=== PATIENT | female | born 1960 | race Caucasian/White ===

== ENCOUNTER 2020-08-31 14:57 | Outpatient (CLI) | payer BC ==
[2020-08-31 15:57] LABS: CLARITY,URINE CLEAR (Clear); COLOR,URINE YELLOW (Yellow); GLUCOSE, URINE NEGATIVE (Neg); KETONES,URINE NEGATIVE (Neg); LEUKOCYTE ESTERASE ,URINE NEGATIVE (Neg); NITRITES, URINE NEGATIVE (Neg); OCCULT BLOOD,URINE TRACE-INTACT (Neg); PH,URINE 5.5 (4.8-8.0); PROTEIN,URINE NEGATIVE (Neg); UROBILINOGEN,URINE 0.2 E.U/dL (0.2-1.0)
[2020-08-31 16:02] LABS: BASOPHILS # (AUTO) 0.1 X10'3 (0-0.2); BASOPHILS % (AUTO) 0.7 % (0-1); EOSINOPHILS # (AUTO) 0.3 X10'3 (0-0.9); EOSINOPHILS % (AUTO) 3.1 % (0-6); HEMATOCRIT 40.1 % (35.0-45.0); HEMOGLOBIN 13.4 g/dl (12.0-16.0); LYMPHOCYTES # (AUTO) 2.5 X10'3 (1.1-4.8); LYMPHOCYTES % (AUTO) 29.1 % (21-51); MEAN CORPUSCULAR HEMOGLOBIN 31.6 PG (27.0-31.0); MEAN CORPUSCULAR HGB CONC 33.4 g/dL (33.0-36.5); MEAN CORPUSCULAR VOLUME 94.8 FL (78-98); MEAN PLATELET VOLUME 8.1 FL (7.4-10.4); MONOCYTES # (AUTO) 0.5 X10'3 (0-0.9); MONOCYTES % (AUTO) 6.3 % (2-12); NEUTROPHILS # (AUTO) 5.3 X10'3 (1.8-7.7); NEUTROPHILS % (AUTO) 60.8 % (42-75); PLATELET COUNT 303 X10'3 (140-440); RED BLOOD COUNT 4.23 X10'6 (4.20-5.60); RED CELL DISTRIBUTION WIDTH 13.9 % (11.5-14.5); WHITE BLOOD COUNT 8.7 X10'3 (4.5-11.0)
[2020-08-31 16:04] LABS: UA COLLECTION TYPE CLN CATCH MIDSTREAM
[2020-08-31 16:09] LABS: ALBUMIN 3.6 G/DL (3.4-5.0); ANION GAP 12 (8-16); BLOOD UREA NITROGEN 11 MG/DL (7-18); BUN/CREATININE RATIO 14.9 (6.6-38.0); CALCIUM 9.1 MG/DL (8.5-10.1); CHLORIDE 101 MMOL/L (99-107); CREATININE 0.74 MG/DL (0.40-0.90); GLUCOSE 113 MG/DL (70-104); SODIUM 138 MMOL/L (135-145); TOTAL CARBON DIOXIDE 25.5 MMOL/L (24-32); eGFR 81 ML/MIN
[2020-08-31 16:12] LABS: POTASSIUM 4.2 MMOL/L (3.5-5.1)
[2020-08-31 16:14] LABS: MUCUS STRANDS MODERATE /LPF (Neg); SQUAMOUS EPITHELIAL CELL,UR MANY /LPF (FEW)
[2020-08-31 16:17] LABS: RBC,URINE 0-2 /HPF (0-2); WBC,URINE 0-4 /HPF (0-4)
[2020-08-31 16:22] LABS: HYALINE CASTS 0-3 /LPF (NEGATIVE)
[2020-08-31 16:25] LABS: BACTERIA,URINE FEW /HPF (Neg)
[2020-09-01] MEDS ORDERED: OXYC1TAB17 PO (14:39)
[2020-09-01] MEDS ORDERED: DOCU-345 PO (14:39)
[2020-09-01] MEDS ORDERED: METF-900 PO (14:39)
[2020-09-01] MEDS ORDERED: ESCI-8 PO (14:39)
[2020-09-01] MEDS ORDERED: PROG200C11 PO (14:39)
[2020-09-01] MEDS ORDERED: [UNRECOGNIZED DRUG - REMARK] PO (15:07)
== END 2020-08-31 23:59 | disposition home or self-care (01) ==
LOC: LAB 14:57
PROVIDERS: ATTEND Surgery
DX: N39.0 Urinary tract infection, site not specified (principal); K57.90 Diverticulosis of intestine, part unspecified, without perforation or abscess without bleeding
CPT/HCPCS: 36415; 80048; 81001; 85025

== ENCOUNTER 2020-09-01 12:15 | Inpatient (IN) | payer BC ==
[~2020-09-01] VITALS: Ht 167.6 cm; Wt 99.5 kg
[2020-09-01] MEDS ORDERED: mag hydrox/Alum hydrox/simeth 30ml oral suspension PO PRN (12:35)
[2020-09-01] MEDS ORDERED: acetaminophen 325mg tablet PO PRN (12:35)
[2020-09-01] MEDS ORDERED: HYDROmorph./NS 0.2 mg/ml CADD 100 ML IV SCH ×2 (12:35→17:30)
[2020-09-01] MEDS ORDERED: CADD PCA waste documentation MC PRN (12:35)
[2020-09-01] MEDS ORDERED: naloxone 0.4 mg/ml inj IV PRN (12:35)
[2020-09-01] MEDS: normal saline 1000ml 1,000 ML IV SCH ×2 (12:35→22:35)
[2020-09-01] MEDS ORDERED: magnesium hydroxide 30ml (MOM) UD suspension PO PRN (12:35)
[2020-09-01 13:33] LABS: BASOPHILS # (AUTO) 0.1 X10'3 (0-0.2); BASOPHILS % (AUTO) 0.8 % (0-1); EOSINOPHILS # (AUTO) 0.3 X10'3 (0-0.9); EOSINOPHILS % (AUTO) 3.7 % (0-6); HEMATOCRIT 39.2 % (35.0-45.0); HEMOGLOBIN 13.2 g/dl (12.0-16.0); LYMPHOCYTES # (AUTO) 2.3 X10'3 (1.1-4.8); LYMPHOCYTES % (AUTO) 28.8 % (21-51); MEAN CORPUSCULAR HEMOGLOBIN 31.8 PG (27.0-31.0); MEAN CORPUSCULAR HGB CONC 33.6 g/dL (33.0-36.5); MEAN CORPUSCULAR VOLUME 94.7 FL (78-98); MEAN PLATELET VOLUME 7.6 FL (7.4-10.4); MONOCYTES # (AUTO) 0.6 X10'3 (0-0.9); MONOCYTES % (AUTO) 7.4 % (2-12); NEUTROPHILS # (AUTO) 4.8 X10'3 (1.8-7.7); NEUTROPHILS % (AUTO) 59.3 % (42-75); PLATELET COUNT 273 X10'3 (140-440); RED BLOOD COUNT 4.14 X10'6 (4.20-5.60); RED CELL DISTRIBUTION WIDTH 13.9 % (11.5-14.5); WHITE BLOOD COUNT 8.1 X10'3 (4.5-11.0)
--- NOTE | 2020-09-01 13:35 | NUR ---
Pt arrived via [facility] to rm 356[facility]. Male SO accompanied pt. skin care technician drawing ordered tests. Pt states she is takes Percocet at home, but needs a midline, per previous difficult IV starts during a hospitalization in July. BHUPENDRA Patiño notified.
[2020-09-01 13:46] LABS: ALANINE AMINOTRANSFERASE 91 U/L (12-78); ALBUMIN 3.5 G/DL (3.4-5.0); ALBUMIN/GLOBULIN RATIO 0.8 (1.1-1.5); ALKALINE PHOSPHATASE 204 IU/L (46-116); ANION GAP 8 (8-16); ASPARTATE AMINO TRANSFERASE 63 U/L (10-37); BILIRUBIN,TOTAL 0.3 MG/DL (0.1-1.0); BLOOD UREA NITROGEN 14 MG/DL (7-18); BUN/CREATININE RATIO 19.4 (6.6-38.0); CALCIUM 8.9 MG/DL (8.5-10.1); CHLORIDE 103 MMOL/L (99-107); CREATININE 0.72 MG/DL (0.40-0.90); GLUCOSE 117 MG/DL (70-104); POTASSIUM 4.3 MMOL/L (3.5-5.1); SODIUM 138 MMOL/L (135-145); TOTAL CARBON DIOXIDE 26.9 MMOL/L (24-32); TOTAL PROTEIN 7.7 G/DL (6.4-8.2); eGFR 83 ML/MIN
[2020-09-01 14:13] VITALS: BP 121/75
[2020-09-01] MEDS: oxyCODONE/APAP 10/325mg tablet PO PRN ×2 (14:19→21:54)
[2020-09-01] MEDS ORDERED: OXYC1TAB17 PO (14:39)
[2020-09-01] MEDS ORDERED: DOCU-345 PO (14:39)
[2020-09-01] MEDS ORDERED: ESCI-8 PO (14:39)
[2020-09-01] MEDS ORDERED: PROG200C11 PO (14:39)
[2020-09-01] MEDS ORDERED: METF-900 PO (14:39)
[2020-09-01] MEDS ORDERED: [UNRECOGNIZED DRUG - REMARK] PO (15:07)
[2020-09-01] MEDS: piperacillin/tazo 4.5gm/100ml 100 ML IV SCH (17:44)
--- NOTE | 2020-09-01 18:16 | NUR ---
Problems reprioritized. Patient report given, questions answered & plan of care reviewed with Charisse Mcqueen RN.
[2020-09-01] MEDS ORDERED: HYDROmorphone inj. 0.5 MG/0.5 ML DISP.SYRIN IV PRN (18:20)
--- NOTE | 2020-09-01 18:30 | NUR ---
Patient in room [facility]. I have received report from AMINA HUIZAR and had the opportunity to ask questions and assume patient care.
[2020-09-01] MEDS: HYDROmorphone 1 mg/ml syringe IV PRN (19:21)
[2020-09-01 20:00] VITALS: BP 98/53
[2020-09-01] MEDS: progesterone, micronized 100mg capsule PO SCH (21:24)
[2020-09-01] MEDS: ESCITALOPRAM OXALATE 5 MG TABLET PO SCH (21:24)
[2020-09-02] VITALS: BP 105/51
[2020-09-02] MEDS: piperacillin/tazo 4.5gm/100ml 100 ML IV SCH ×2 (00:36→07:12)
[2020-09-02] MEDS: HYDROmorphone 1 mg/ml syringe IV PRN ×6 (00:44→23:43)
[2020-09-02] MEDS: normal saline 1000ml 1,000 ML IV SCH ×2 (02:56→15:51)
--- NOTE | 2020-09-02 06:30 | NUR ---
Problems reprioritized. Patient report given, questions answered & plan of care reviewed with SOLO HUIZAR.
--- NOTE | 2020-09-02 06:32 | NUR ---
Patient in room [facility]. I have received report from BHUPENDRA Baker and had the opportunity to ask questions and assume patient care.
[2020-09-02 07:00] VITALS: BP 116/37
[2020-09-02] MEDS: oxyCODONE/APAP 10/325mg tablet PO PRN ×2 (07:12→15:51)
[2020-09-02] MEDS: ondansetron/PF 4mg/2ml inj IV PRN (07:12)
[2020-09-02] MEDS: ESCITALOPRAM OXALATE 5 MG TABLET PO SCH ×2 (07:13→20:33)
[2020-09-02] MEDS: enoxaparin 40mg/0.4ml syringe SUBCUT SCH (07:14)
[2020-09-02] MEDS ORDERED: cefepime 2g/NS 100ml ADVANTAGE 100 ML IV SCH (08:15)
[2020-09-02 08:23] LABS: EOSINOPHILS # (AUTO) 0.1 X10'3 (0-0.9); EOSINOPHILS % (AUTO) 2.8 % (0-6); HEMATOCRIT 37.3 % (35.0-45.0); HEMOGLOBIN 12.4 g/dl (12.0-16.0); LYMPHOCYTES # (AUTO) 1.2 X10'3 (1.1-4.8); LYMPHOCYTES % (AUTO) 23.3 % (21-51); MEAN CORPUSCULAR HEMOGLOBIN 31.7 PG (27.0-31.0); MEAN CORPUSCULAR HGB CONC 33.2 g/dL (33.0-36.5); MEAN CORPUSCULAR VOLUME 95.6 FL (78-98); MEAN PLATELET VOLUME 7.9 FL (7.4-10.4); MONOCYTES # (AUTO) 0.4 X10'3 (0-0.9); MONOCYTES % (AUTO) 7.9 % (2-12); NEUTROPHILS # (AUTO) 3.3 X10'3 (1.8-7.7); PLATELET COUNT 212 X10'3 (140-440); RED CELL DISTRIBUTION WIDTH 14.1 % (11.5-14.5)
[2020-09-02 08:45] LABS: ALBUMIN 2.8 G/DL (3.4-5.0); ANION GAP 9 (8-16); BLOOD UREA NITROGEN 13 MG/DL (7-18); BUN/CREATININE RATIO 18.6 (6.6-38.0); CALCIUM 8.5 MG/DL (8.5-10.1); CHLORIDE 104 MMOL/L (99-107); GLUCOSE 145 MG/DL (70-104); POTASSIUM 4.2 MMOL/L (3.5-5.1); SODIUM 142 MMOL/L (135-145); TOTAL CARBON DIOXIDE 28.8 MMOL/L (24-32); eGFR 86 ML/MIN
--- NOTE | 2020-09-02 09:05 | NUR ---
Pt started on new antibiotic d/t Zosyn allergy (increased Liver enzymes) now having hives with Cephapime. Medication stopped. Notified Dr Carrillo and asked for Benadryl. Will continue to monitor reaction. No current breathing issues.
--- NOTE | 2020-09-02 09:20 | NUR ---
Dr Nava at bedside to see pt with extensive conversation regarding plan of care. Pt verbalizing desire to have surgery to "get it over with. Md preferring to continue a medical approach to wait for more definitive findings. Pt reluctantly willing to go along with the plan.
[2020-09-02] MEDS: diphenhydrAMINE 50 mg/ml inj IV PRN (09:24)
[2020-09-02 11:00] VITALS: BP 120/48
[2020-09-02] MEDS ORDERED: vancomycin/NS 1 GM ADD-VANTAGE 250 ML IV SCH (11:00)
[2020-09-02] MEDS: vancomycin/NS 1 GM ADD-VANTAGE 250 ML IV SCH ×2 (11:18→19:04)
[2020-09-02 11:41] LABS: C-REACTIVE PROTEIN 0.87 MG/DL (0.0-0.5); PREALBUMIN 23.7 MG/DL (19-36)
--- NOTE | 2020-09-02 13:00 | NUR ---
medicated for pain 09/21.
[2020-09-02] MEDS: aztreonam inj. 1,000 MG in normal saline 100ml IV soln 100 ML IV SCH ×2 (13:39→23:39)
[2020-09-02] MEDS: metroNIDAZOLE-Flagyl 500mg/NS 100 ML IV SCH (15:52)
[2020-09-02] MEDS: metoclopramide 5 mg/ml inj IV PRN (18:57)
[2020-09-02 19:46] VITALS: BP 112/70
[2020-09-02] MEDS: progesterone, micronized 100mg capsule PO SCH (20:33)
[2020-09-03 00:18] VITALS: BP 107/52
--- NOTE | 2020-09-03 00:27 | NUR ---
Problems reprioritized. Patient report given, questions answered & plan of care reviewed with BHUPENDRA Soto.
[2020-09-03] MEDS: oxyCODONE/APAP 10/325mg tablet PO PRN ×3 (01:28→15:40)
[2020-09-03] MEDS: metroNIDAZOLE-Flagyl 500mg/NS 100 ML IV SCH ×4 (01:29→23:45)
[2020-09-03] MEDS: vancomycin/NS 1 GM ADD-VANTAGE 250 ML IV SCH ×2 (03:00→12:20)
[2020-09-03] MEDS: HYDROmorphone 1 mg/ml syringe IV PRN ×5 (03:51→22:14)
--- NOTE | 2020-09-03 06:24 | NUR ---
Patient in room [facility]. I have received report from alexis HUIZAR and had the opportunity to ask questions and assume patient care.
[2020-09-03 06:27] LABS: BASOPHILS % (AUTO) 0.9 % (0-1); EOSINOPHILS # (AUTO) 0.3 X10'3 (0-0.9); EOSINOPHILS % (AUTO) 5.7 % (0-6); HEMATOCRIT 35.4 % (35.0-45.0); HEMOGLOBIN 11.8 g/dl (12.0-16.0); LYMPHOCYTES # (AUTO) 1.4 X10'3 (1.1-4.8); LYMPHOCYTES % (AUTO) 27.3 % (21-51); MEAN CORPUSCULAR HGB CONC 33.4 g/dL (33.0-36.5); MEAN CORPUSCULAR VOLUME 95.9 FL (78-98); MEAN PLATELET VOLUME 7.9 FL (7.4-10.4); MONOCYTES # (AUTO) 0.4 X10'3 (0-0.9); MONOCYTES % (AUTO) 7.9 % (2-12); NEUTROPHILS % (AUTO) 58.2 % (42-75); PLATELET COUNT 213 X10'3 (140-440); RED BLOOD COUNT 3.69 X10'6 (4.20-5.60); RED CELL DISTRIBUTION WIDTH 14.1 % (11.5-14.5); WHITE BLOOD COUNT 5.2 X10'3 (4.5-11.0)
[2020-09-03 06:33] LABS: ALBUMIN 2.8 G/DL (3.4-5.0); ANION GAP 6 (8-16); BLOOD UREA NITROGEN 6 MG/DL (7-18); BUN/CREATININE RATIO 8.2 (6.6-38.0); CALCIUM 8.4 MG/DL (8.5-10.1); CHLORIDE 106 MMOL/L (99-107); CREATININE 0.73 MG/DL (0.40-0.90); GLUCOSE 107 MG/DL (70-104); POTASSIUM 3.9 MMOL/L (3.5-5.1); SODIUM 141 MMOL/L (135-145); TOTAL CARBON DIOXIDE 29.1 MMOL/L (24-32); eGFR 82 ML/MIN
[2020-09-03 07:00] VITALS: BP 127/56
[2020-09-03] MEDS: aztreonam inj. 1,000 MG in normal saline 100ml IV soln 100 ML IV SCH ×2 (07:28→15:39)
[2020-09-03] MEDS: ESCITALOPRAM OXALATE 5 MG TABLET PO SCH ×2 (07:29→19:32)
[2020-09-03] MEDS: enoxaparin 40mg/0.4ml syringe SUBCUT SCH (07:30)
[2020-09-03] MEDS: normal saline 1000ml 1,000 ML IV SCH ×3 (07:36→23:43)
[2020-09-03] MEDS: ondansetron/PF 4mg/2ml inj IV PRN (07:38)
[2020-09-03] MEDS ORDERED: VANCOMYCIN LEVEL IV ONE (10:30)
[2020-09-03 11:00] VITALS: BP 107/65
--- NOTE | 2020-09-03 14:37 | NUR ---
patient requiring pain relief q2hrs. Seen by Dr barone and DR Carrillo. patient commenced on clear liquid diet to go slow on this. present. will continue to monitor.Ambulated in Hallway, passing gas.
[2020-09-03] MEDS ORDERED: LIDOcaine 2% 10ml TOPICAL JELLY (Urojet) TP ONE (16:10)
[2020-09-03 18:00] VITALS: BP 127/62
--- NOTE | 2020-09-03 18:27 | NUR ---
Patient in room [facility]. I have received report from BHUPENDRA Chicas and had the opportunity to ask questions and assume patient care.
--- NOTE | 2020-09-03 18:31 | NUR ---
Problems reprioritized. Patient report given, questions answered & plan of care reviewed with Yusuf HUIZAR.
[2020-09-03] MEDS: VANCOmycin 1250MG/NS 250ml Bag 250 ML IV SCH (19:20)
[2020-09-03] MEDS: lactobacillus rhamnosus 10,000 MMU CELLS/CAPSULE PO SCH (19:32)
[2020-09-03] MEDS: progesterone, micronized 100mg capsule PO SCH (21:12)
[2020-09-04 00:08] VITALS: BP 125/60
[2020-09-04] MEDS: oxyCODONE/APAP 10/325mg tablet PO PRN ×3 (00:30→18:54)
[2020-09-04] MEDS: aztreonam inj. 1,000 MG in normal saline 100ml IV soln 100 ML IV SCH ×3 (00:31→17:45)
[2020-09-04] MEDS: HYDROmorphone 1 mg/ml syringe IV PRN ×4 (03:16→21:16)
[2020-09-04] MEDS: VANCOmycin 1250MG/NS 250ml Bag 250 ML IV SCH ×3 (03:19→18:56)
--- NOTE | 2020-09-04 06:26 | NUR ---
Problems reprioritized. Patient report given, questions answered & plan of care reviewed with BHUPENDRA Marion.
--- NOTE | 2020-09-04 06:35 | NUR ---
Patient in room [facility]. I have received report from Yusuf HUIZAR and had the opportunity to ask questions and assume patient care.
[2020-09-04 07:02] LABS: BASOPHILS % (AUTO) 0.8 % (0-1); EOSINOPHILS # (AUTO) 0.3 X10'3 (0-0.9); EOSINOPHILS % (AUTO) 5.3 % (0-6); HEMATOCRIT 34.6 % (35.0-45.0); HEMOGLOBIN 11.9 g/dl (12.0-16.0); LYMPHOCYTES # (AUTO) 1.5 X10'3 (1.1-4.8); LYMPHOCYTES % (AUTO) 32.4 % (21-51); MEAN CORPUSCULAR HEMOGLOBIN 32.3 PG (27.0-31.0); MEAN CORPUSCULAR HGB CONC 34.3 g/dL (33.0-36.5); MEAN CORPUSCULAR VOLUME 94.1 FL (78-98); MEAN PLATELET VOLUME 7.5 FL (7.4-10.4); MONOCYTES # (AUTO) 0.4 X10'3 (0-0.9); MONOCYTES % (AUTO) 7.8 % (2-12); NEUTROPHILS # (AUTO) 2.6 X10'3 (1.8-7.7); NEUTROPHILS % (AUTO) 53.7 % (42-75); PLATELET COUNT 204 X10'3 (140-440); RED BLOOD COUNT 3.68 X10'6 (4.20-5.60); RED CELL DISTRIBUTION WIDTH 13.9 % (11.5-14.5); WHITE BLOOD COUNT 4.8 X10'3 (4.5-11.0)
[2020-09-04 07:13] VITALS: BP 120/62
[2020-09-04 07:17] LABS: ALBUMIN 2.8 G/DL (3.4-5.0); ANION GAP 9 (8-16); BLOOD UREA NITROGEN 4 MG/DL (7-18); BUN/CREATININE RATIO 6.2 (6.6-38.0); CALCIUM 8.3 MG/DL (8.5-10.1); CHLORIDE 105 MMOL/L (99-107); CREATININE 0.65 MG/DL (0.40-0.90); GLUCOSE 119 MG/DL (70-104); POTASSIUM 3.7 MMOL/L (3.5-5.1); SODIUM 140 MMOL/L (135-145); TOTAL CARBON DIOXIDE 26.1 MMOL/L (24-32); eGFR > 90 ML/MIN
[2020-09-04] MEDS: lactobacillus rhamnosus 10,000 MMU CELLS/CAPSULE PO SCH ×2 (07:51→20:27)
[2020-09-04] MEDS: ESCITALOPRAM OXALATE 5 MG TABLET PO SCH ×2 (07:52→20:27)
[2020-09-04] MEDS: enoxaparin 40mg/0.4ml syringe SUBCUT SCH (07:56)
[2020-09-04] MEDS: ondansetron/PF 4mg/2ml inj IV PRN (08:00)
[2020-09-04] MEDS: metroNIDAZOLE-Flagyl 500mg/NS 100 ML IV SCH ×2 (09:33→15:55)
[2020-09-04] MEDS: normal saline 1000ml 1,000 ML IV SCH ×2 (10:35→15:55)
[2020-09-04 11:00] VITALS: BP 125/59
[2020-09-04] MEDS: metoclopramide 5 mg/ml inj IV PRN (11:41)
[2020-09-04 12:46] LABS: ALANINE AMINOTRANSFERASE 332 U/L (12-78); ALBUMIN/GLOBULIN RATIO 0.8 (1.1-1.5); ALKALINE PHOSPHATASE 340 IU/L (46-116); ASPARTATE AMINO TRANSFERASE 144 U/L (10-37); BILIRUBIN,DIRECT 0.3 MG/DL (0-0.3); BILIRUBIN,TOTAL 0.7 MG/DL (0.1-1.0); TOTAL PROTEIN 6.4 G/DL (6.4-8.2)
--- NOTE | 2020-09-04 18:17 | NUR ---
Problems reprioritized. Patient report given, questions answered & plan of care reviewed with Prudence RN.
[2020-09-04 18:30] VITALS: BP 128/53
[2020-09-04] MEDS ORDERED: VANCOMYCIN LEVEL IV ONE (18:30)
--- NOTE | 2020-09-04 18:33 | NUR ---
Patient in room [facility]. I have received report from MIHAELA HUIZAR and had the opportunity to ask questions and assume patient care.
[2020-09-04] MEDS: docusate sod 100mg capsule PO SCH (20:27)
[2020-09-04] MEDS: progesterone, micronized 100mg capsule PO SCH (20:28)
[2020-09-04] MEDS: polyethylene glycol 3350 17gm powd pack PO SCH (21:00)
[2020-09-05] MEDS: metroNIDAZOLE-Flagyl 500mg/NS 100 ML IV SCH ×3 (00:13→17:08)
[2020-09-05] MEDS: aztreonam inj. 1,000 MG in normal saline 100ml IV soln 100 ML IV SCH ×3 (00:17→18:41)
[2020-09-05 00:27] VITALS: BP 124/61
[2020-09-05] MEDS: oxyCODONE/APAP 10/325mg tablet PO PRN ×3 (00:55→18:41)
[2020-09-05] MEDS: VANCOmycin 1250MG/NS 250ml Bag 250 ML IV SCH ×3 (03:15→19:53)
[2020-09-05] MEDS: HYDROmorphone 1 mg/ml syringe IV PRN ×4 (03:21→21:09)
--- NOTE | 2020-09-05 06:14 | NUR ---
Problems reprioritized. Patient report given, questions answered & plan of care reviewed with FLETCHER HUIZAR.
[2020-09-05] MEDS: normal saline 1000ml 1,000 ML IV SCH ×2 (06:35→16:35)
--- NOTE | 2020-09-05 06:45 | NUR ---
Patient in room [facility]. I have received report from BHUEPNDRA WEBSTER and had the opportunity to ask questions and assume patient care.
[2020-09-05 06:53] LABS: BASOPHILS % (AUTO) 0.8 % (0-1); EOSINOPHILS # (AUTO) 0.3 X10'3 (0-0.9); EOSINOPHILS % (AUTO) 5.1 % (0-6); HEMATOCRIT 34.4 % (35.0-45.0); HEMOGLOBIN 11.5 g/dl (12.0-16.0); LYMPHOCYTES # (AUTO) 1.8 X10'3 (1.1-4.8); MEAN CORPUSCULAR HEMOGLOBIN 31.9 PG (27.0-31.0); MEAN CORPUSCULAR HGB CONC 33.4 g/dL (33.0-36.5); MEAN CORPUSCULAR VOLUME 95.6 FL (78-98); MONOCYTES # (AUTO) 0.4 X10'3 (0-0.9); NEUTROPHILS % (AUTO) 54.1 % (42-75); PLATELET COUNT 227 X10'3 (140-440); RED CELL DISTRIBUTION WIDTH 13.9 % (11.5-14.5); WHITE BLOOD COUNT 5.6 X10'3 (4.5-11.0)
[2020-09-05 07:00] VITALS: BP 132/68
[2020-09-05 07:01] LABS: ALANINE AMINOTRANSFERASE 233 U/L (12-78); ALBUMIN 2.6 G/DL (3.4-5.0); ALBUMIN/GLOBULIN RATIO 0.7 (1.1-1.5); ALKALINE PHOSPHATASE 320 IU/L (46-116); ANION GAP 7 (8-16); ASPARTATE AMINO TRANSFERASE 73 U/L (10-37); BILIRUBIN,TOTAL 0.5 MG/DL (0.1-1.0); BLOOD UREA NITROGEN 4 MG/DL (7-18); BUN/CREATININE RATIO 6.9 (6.6-38.0); CHLORIDE 107 MMOL/L (99-107); CREATININE 0.58 MG/DL (0.40-0.90); GLUCOSE 108 MG/DL (70-104); POTASSIUM 3.8 MMOL/L (3.5-5.1); SODIUM 141 MMOL/L (135-145); TOTAL CARBON DIOXIDE 26.9 MMOL/L (24-32); TOTAL PROTEIN 6.1 G/DL (6.4-8.2); eGFR > 90 ML/MIN
[2020-09-05] MEDS: lactobacillus rhamnosus 10,000 MMU CELLS/CAPSULE PO SCH ×2 (09:10→19:54)
[2020-09-05] MEDS: ESCITALOPRAM OXALATE 5 MG TABLET PO SCH ×2 (09:10→19:53)
[2020-09-05] MEDS: docusate sod 100mg capsule PO SCH ×2 (09:11→19:54)
[2020-09-05] MEDS: enoxaparin 40mg/0.4ml syringe SUBCUT SCH (09:12)
[2020-09-05] MEDS ORDERED: magnesium hydroxide 30ml (MOM) UD suspension PO PRN (10:50)
[2020-09-05 11:00] VITALS: BP 125/68
[2020-09-05 18:00] VITALS: BP 132/65
--- NOTE | 2020-09-05 18:45 | NUR ---
Problems reprioritized. Patient report given, questions answered & plan of care reviewed with BHUPENDRA PATE.
[2020-09-05] MEDS: ondansetron/PF 4mg/2ml inj IV PRN (18:47)
[2020-09-05] MEDS: polyethylene glycol 3350 17gm powd pack PO SCH (20:59)
[2020-09-05] MEDS: progesterone, micronized 100mg capsule PO SCH (21:09)
[2020-09-05] MEDS: metoclopramide 5 mg/ml inj IV PRN (21:40)
[2020-09-06] VITALS: BP 113/48
[2020-09-06] MEDS: oxyCODONE/APAP 10/325mg tablet PO PRN ×4 (00:42→21:35)
[2020-09-06] MEDS: metroNIDAZOLE-Flagyl 500mg/NS 100 ML IV SCH ×4 (00:43→23:16)
[2020-09-06] MEDS: aztreonam inj. 1,000 MG in normal saline 100ml IV soln 100 ML IV SCH ×4 (00:43→23:16)
[2020-09-06] MEDS: normal saline 1000ml 1,000 ML IV SCH ×3 (00:48→21:47)
[2020-09-06] MEDS: VANCOmycin 1250MG/NS 250ml Bag 250 ML IV SCH ×3 (03:59→19:05)
[2020-09-06 06:11] LABS: BASOPHILS % (AUTO) 0.7 % (0-1); EOSINOPHILS # (AUTO) 0.3 X10'3 (0-0.9); EOSINOPHILS % (AUTO) 5.8 % (0-6); HEMATOCRIT 36.1 % (35.0-45.0); HEMOGLOBIN 12.1 g/dl (12.0-16.0); LYMPHOCYTES # (AUTO) 1.8 X10'3 (1.1-4.8); LYMPHOCYTES % (AUTO) 34.8 % (21-51); MEAN CORPUSCULAR HEMOGLOBIN 31.9 PG (27.0-31.0); MEAN CORPUSCULAR HGB CONC 33.4 g/dL (33.0-36.5); MEAN CORPUSCULAR VOLUME 95.5 FL (78-98); MEAN PLATELET VOLUME 7.8 FL (7.4-10.4); MONOCYTES # (AUTO) 0.4 X10'3 (0-0.9); MONOCYTES % (AUTO) 8.5 % (2-12); NEUTROPHILS # (AUTO) 2.6 X10'3 (1.8-7.7); NEUTROPHILS % (AUTO) 50.2 % (42-75); PLATELET COUNT 236 X10'3 (140-440); RED BLOOD COUNT 3.78 X10'6 (4.20-5.60); RED CELL DISTRIBUTION WIDTH 13.9 % (11.5-14.5); WHITE BLOOD COUNT 5.1 X10'3 (4.5-11.0)
--- NOTE | 2020-09-06 06:24 | NUR ---
Patient in room [facility]. I have received report from Shira HUIZAR and had the opportunity to ask questions and assume patient care.
[2020-09-06 06:34] LABS: ALANINE AMINOTRANSFERASE 184 U/L (12-78); ALBUMIN 2.6 G/DL (3.4-5.0); ALBUMIN/GLOBULIN RATIO 0.7 (1.1-1.5); ALKALINE PHOSPHATASE 290 IU/L (46-116); ANION GAP 9 (8-16); ASPARTATE AMINO TRANSFERASE 61 U/L (10-37); BILIRUBIN,TOTAL 0.4 MG/DL (0.1-1.0); BLOOD UREA NITROGEN 4 MG/DL (7-18); BUN/CREATININE RATIO 6.8 (6.6-38.0); CALCIUM 8.4 MG/DL (8.5-10.1); CHLORIDE 107 MMOL/L (99-107); CREATININE 0.59 MG/DL (0.40-0.90); GLUCOSE 99 MG/DL (70-104); POTASSIUM 3.6 MMOL/L (3.5-5.1); SODIUM 143 MMOL/L (135-145); TOTAL PROTEIN 6.1 G/DL (6.4-8.2); eGFR > 90 ML/MIN
[2020-09-06 07:45] VITALS: BP 130/58
[2020-09-06] MEDS: docusate sod 100mg capsule PO SCH ×2 (08:41→19:07)
[2020-09-06] MEDS: lactobacillus rhamnosus 10,000 MMU CELLS/CAPSULE PO SCH ×2 (08:41→19:07)
[2020-09-06] MEDS: ESCITALOPRAM OXALATE 5 MG TABLET PO SCH ×2 (08:41→19:06)
[2020-09-06] MEDS: enoxaparin 40mg/0.4ml syringe SUBCUT SCH (08:42)
[2020-09-06 11:18] VITALS: BP 130/68
[2020-09-06] MEDS: HYDROmorphone 1 mg/ml syringe IV PRN ×2 (12:06→16:13)
--- NOTE | 2020-09-06 13:54 | NUR ---
ok to give percocet "one time dose early" per surgeon.
--- NOTE | 2020-09-06 15:15 | NUR ---
Initial; Pt admitted w/ worsening abd pain d/t sigmoid colectomy earlier this month per EMR. CT on 09/01 showed an intra abdominal abscess. Pt reports she still feels abdominal pain and some nausea. No vomiting or diarrhea reported. Pt reports no appetite, avg intake 28% x 7 meals on clear liquid diet which meets 14% of est energy needs and 3% of est protein needs. Intake inadequate, current diet tolerated. LBM 09/05. Will continue to monitor. Rec: 1. Advance to regular diet as medically appropriate 2. Ensure Clear TID to provide 720kcals and 24 protien if consumed 100% 3. Bowel care per rx 4. Weekly weights Addendum: 09/06/20 at [address] Amended: Links added.
[2020-09-06 18:00] VITALS: BP 112/67
--- NOTE | 2020-09-06 18:10 | NUR ---
Patient in room [facility]. I have received report from BHUPENDRA Salazar and had the opportunity to ask questions and assume patient care.
--- NOTE | 2020-09-06 18:21 | NUR ---
Problems reprioritized. Patient report given, questions answered & plan of care reviewed with NOC Shift RN.
[2020-09-06] MEDS: NUT.TX.IMPAIRED DIGEST FXN (Ensure Clear) 237 ML PO SCH (19:06)
[2020-09-06] MEDS: HYDROmorphone inj. 0.5 MG/0.5 ML DISP.SYRIN IV PRN ×2 (19:07→23:19)
[2020-09-06] MEDS: ondansetron/PF 4mg/2ml inj IV PRN (19:10)
[2020-09-06] MEDS: polyethylene glycol 3350 17gm powd pack PO SCH (21:00)
[2020-09-06] MEDS: metoclopramide 5 mg/ml inj IV PRN (21:35)
[2020-09-06] MEDS: progesterone, micronized 100mg capsule PO SCH (21:36)
[2020-09-07] VITALS: BP 121/53
[2020-09-07] MEDS: VANCOmycin 1250MG/NS 250ml Bag 250 ML IV SCH ×3 (03:08→20:17)
[2020-09-07] MEDS: HYDROmorphone inj. 0.5 MG/0.5 ML DISP.SYRIN IV PRN ×4 (05:46→22:02)
[2020-09-07 06:11] LABS: BASOPHILS % (AUTO) 0.5 % (0-1); EOSINOPHILS # (AUTO) 0.3 X10'3 (0-0.9); EOSINOPHILS % (AUTO) 5.3 % (0-6); HEMATOCRIT 35.6 % (35.0-45.0); HEMOGLOBIN 12.2 g/dl (12.0-16.0); LYMPHOCYTES # (AUTO) 1.5 X10'3 (1.1-4.8); LYMPHOCYTES % (AUTO) 25.9 % (21-51); MEAN CORPUSCULAR HEMOGLOBIN 32.2 PG (27.0-31.0); MEAN CORPUSCULAR HGB CONC 34.3 g/dL (33.0-36.5); MEAN CORPUSCULAR VOLUME 93.9 FL (78-98); MEAN PLATELET VOLUME 7.5 FL (7.4-10.4); MONOCYTES # (AUTO) 0.5 X10'3 (0-0.9); MONOCYTES % (AUTO) 8.5 % (2-12); NEUTROPHILS # (AUTO) 3.4 X10'3 (1.8-7.7); NEUTROPHILS % (AUTO) 59.8 % (42-75); PLATELET COUNT 241 X10'3 (140-440); RED BLOOD COUNT 3.79 X10'6 (4.20-5.60); RED CELL DISTRIBUTION WIDTH 13.9 % (11.5-14.5); WHITE BLOOD COUNT 5.7 X10'3 (4.5-11.0)
--- NOTE | 2020-09-07 06:32 | NUR ---
Problems reprioritized. Patient report given, questions answered & plan of care reviewed with BHUPENDRA Roberto.
[2020-09-07 06:38] LABS: ALANINE AMINOTRANSFERASE 156 U/L (12-78); ALBUMIN 2.7 G/DL (3.4-5.0); ALBUMIN/GLOBULIN RATIO 0.8 (1.1-1.5); ALKALINE PHOSPHATASE 282 IU/L (46-116); ANION GAP 9 (8-16); ASPARTATE AMINO TRANSFERASE 64 U/L (10-37); BILIRUBIN,TOTAL 0.4 MG/DL (0.1-1.0); BLOOD UREA NITROGEN 3 MG/DL (7-18); BUN/CREATININE RATIO 5.1 (6.6-38.0); CALCIUM 8.1 MG/DL (8.5-10.1); CHLORIDE 107 MMOL/L (99-107); CREATININE 0.59 MG/DL (0.40-0.90); GLUCOSE 105 MG/DL (70-104); POTASSIUM 3.5 MMOL/L (3.5-5.1); SODIUM 143 MMOL/L (135-145); TOTAL CARBON DIOXIDE 26.6 MMOL/L (24-32); TOTAL PROTEIN 6.2 G/DL (6.4-8.2); eGFR > 90 ML/MIN
[2020-09-07 08:00] VITALS: BP 131/62
[2020-09-07] MEDS ORDERED: diatrozoate meglu/diatrozoate sod (37% iodine) 120ML oral solution ONE (08:00)
[2020-09-07] MEDS: metroNIDAZOLE-Flagyl 500mg/NS 100 ML IV SCH ×3 (08:32→23:28)
[2020-09-07] MEDS: enoxaparin 40mg/0.4ml syringe SUBCUT SCH (08:32)
[2020-09-07] MEDS: lactobacillus rhamnosus 10,000 MMU CELLS/CAPSULE PO SCH ×2 (08:33→20:18)
[2020-09-07] MEDS: docusate sod 100mg capsule PO SCH ×2 (08:33→20:18)
[2020-09-07] MEDS: ESCITALOPRAM OXALATE 5 MG TABLET PO SCH ×2 (08:33→20:18)
[2020-09-07] MEDS: oxyCODONE/APAP 10/325mg tablet PO PRN ×3 (08:33→20:18)
[2020-09-07] MEDS: NUT.TX.IMPAIRED DIGEST FXN (Ensure Clear) 237 ML PO SCH ×3 (08:34→18:48)
[2020-09-07] MEDS: aztreonam inj. 1,000 MG in normal saline 100ml IV soln 100 ML IV SCH ×3 (10:02→23:28)
[2020-09-07] MEDS: normal saline 1000ml 1,000 ML IV SCH ×2 (11:12→22:03)
[2020-09-07 12:07] VITALS: BP 123/51
--- NOTE | 2020-09-07 16:00 | NUR ---
patient off the floor for Xray
[2020-09-07 18:00] VITALS: BP 136/74
--- NOTE | 2020-09-07 18:06 | NUR ---
Patient in room [facility]. I have received report from BHUPENDRA Roberto and had the opportunity to ask questions and assume patient care.
[2020-09-07] MEDS: progesterone, micronized 100mg capsule PO SCH (20:19)
[2020-09-07] MEDS: polyethylene glycol 3350 17gm powd pack PO SCH (20:19)
[2020-09-08] VITALS: BP 129/66
[2020-09-08] MEDS: diphenhydrAMINE 50 mg/ml inj IV PRN (00:41)
[2020-09-08] MEDS: VANCOmycin 1250MG/NS 250ml Bag 250 ML IV SCH (02:32)
[2020-09-08] MEDS: normal saline 1000ml 1,000 ML IV SCH (03:08)
[2020-09-08] MEDS: HYDROmorphone inj. 0.5 MG/0.5 ML DISP.SYRIN IV PRN ×2 (05:33→10:45)
[2020-09-08 06:05] LABS: ALANINE AMINOTRANSFERASE 116 U/L (12-78); ALBUMIN 2.7 G/DL (3.4-5.0); ALBUMIN/GLOBULIN RATIO 0.8 (1.1-1.5); ALKALINE PHOSPHATASE 236 IU/L (46-116); ANION GAP 7 (8-16); ASPARTATE AMINO TRANSFERASE 38 U/L (10-37); BILIRUBIN,TOTAL 0.3 MG/DL (0.1-1.0); BLOOD UREA NITROGEN 7 MG/DL (7-18); BUN/CREATININE RATIO 10.9 (6.6-38.0); CALCIUM 8.2 MG/DL (8.5-10.1); CHLORIDE 109 MMOL/L (99-107); CREATININE 0.64 MG/DL (0.40-0.90); GLUCOSE 116 MG/DL (70-104); POTASSIUM 3.5 MMOL/L (3.5-5.1); SODIUM 143 MMOL/L (135-145); TOTAL CARBON DIOXIDE 26.9 MMOL/L (24-32); TOTAL PROTEIN 6.1 G/DL (6.4-8.2); eGFR > 90 ML/MIN
[2020-09-08 06:30] LABS: BASOPHILS % (AUTO) 0.7 % (0-1); EOSINOPHILS # (AUTO) 0.3 X10'3 (0-0.9); EOSINOPHILS % (AUTO) 4.6 % (0-6); HEMATOCRIT 36.3 % (35.0-45.0); HEMOGLOBIN 12.1 g/dl (12.0-16.0); LYMPHOCYTES # (AUTO) 2.1 X10'3 (1.1-4.8); LYMPHOCYTES % (AUTO) 33.3 % (21-51); MEAN CORPUSCULAR HGB CONC 33.4 g/dL (33.0-36.5); MEAN CORPUSCULAR VOLUME 95.7 FL (78-98); MONOCYTES # (AUTO) 0.5 X10'3 (0-0.9); MONOCYTES % (AUTO) 8.9 % (2-12); NEUTROPHILS # (AUTO) 3.2 X10'3 (1.8-7.7); NEUTROPHILS % (AUTO) 52.5 % (42-75); PLATELET COUNT 258 X10'3 (140-440); RED CELL DISTRIBUTION WIDTH 13.9 % (11.5-14.5); WHITE BLOOD COUNT 6.2 X10'3 (4.5-11.0)
--- NOTE | 2020-09-08 06:32 | NUR ---
Problems reprioritized. Patient report given, questions answered & plan of care reviewed with BHUPENDRA Roberto.
[2020-09-08 07:43] VITALS: BP 131/60
[2020-09-08] MEDS: docusate sod 100mg capsule PO SCH (08:04)
[2020-09-08] MEDS: lactobacillus rhamnosus 10,000 MMU CELLS/CAPSULE PO SCH (08:04)
[2020-09-08] MEDS: ESCITALOPRAM OXALATE 5 MG TABLET PO SCH (08:04)
[2020-09-08] MEDS: oxyCODONE/APAP 10/325mg tablet PO PRN (08:05)
[2020-09-08] MEDS: metroNIDAZOLE-Flagyl 500mg/NS 100 ML IV SCH (08:06)
[2020-09-08] MEDS: enoxaparin 40mg/0.4ml syringe SUBCUT SCH (08:06)
[2020-09-08] MEDS: NUT.TX.IMPAIRED DIGEST FXN (Ensure Clear) 237 ML PO SCH (08:06)
[2020-09-08] MEDS: aztreonam inj. 1,000 MG in normal saline 100ml IV soln 100 ML IV SCH (09:41)
[2020-09-08 11:00] VITALS: BP 129/66
[2020-09-08] MEDS ORDERED: CLIN-97 PO (12:26)
== END 2020-09-08 13:27 | disposition home or self-care (01) | DRG 391 ==
LOC: SUR 3N 12:31
PROVIDERS: ADMIT Family Medicine; ATTEND Family Medicine
DX: K57.80 Diverticulitis of intestine, part unspecified, with perforation and abscess without bleeding (principal); K65.1 Peritoneal abscess; E06.3 Autoimmune thyroiditis; E11.9 Type 2 diabetes mellitus without complications; F32.9 Major depressive disorder, single episode, unspecified; K59.00 Constipation, unspecified; Z79.84 Long term (current) use of oral hypoglycemic drugs; Z90.49 Acquired absence of other specified parts of digestive tract; Z90.710 Acquired absence of both cervix and uterus; Z88.6 Allergy status to analgesic agent; Z88.5 Allergy status to narcotic agent; Z88.8 Allergy status to other drugs, medicaments and biological substances; Z79.899 Other long term (current) drug therapy
CPT/HCPCS: 36415; 74018; 74270; 80048; 80053; 80076; 80202; 82948; 83036; 84134; 85025; 85610; 86140; 87081; G0378; J0692; J1170; J1200; J1650; J2405; J2543; J2765; J3370; J3490; J7030; Q9963

== ENCOUNTER → 2020-09-01 | Outpatient (CLI) | payer BC ==
[~2020-09-01] MED LIST: DOCU-345 PO; ESCI-8 PO; METF-900 PO; OXYC1TAB17 PO; PROG200C11 PO; [UNRECOGNIZED DRUG - REMARK] PO; iohexol 300mg/ml 100ml inj. ONE
== END | disposition home or self-care (01) ==
LOC: 64 CT 09:29
PROVIDERS: ATTEND Surgery
DX: K63.1 Perforation of intestine (nontraumatic) (principal); K65.1 Peritoneal abscess
CPT/HCPCS: 74177; Q9967